=== PATIENT | male | born 1965 | race Caucasian/White ===

== ENCOUNTER → 2019-12-30 11:00 | Outpatient (BNVA) | payer BC, SELFPAY | PROVIDERS: Family Provider Nurse Practitioner Family; PCP Nurse Practitioner Family; Visit Provider Registered Nurse | DX: Z00.00 Encounter for general adult medical examination without abnormal findings (principal); R10.30 Lower abdominal pain, unspecified; Z53.20 Procedure and treatment not carried out because of patient's decision for unspecified reasons; Z12.5 Encounter for screening for malignant neoplasm of prostate | CPT/HCPCS: G0103 ==

== ENCOUNTER → 2021-08-08 08:38 | Outpatient (BNVA) | payer BC, SELFPAY | PROVIDERS: Family Provider Nurse Practitioner Family; PCP Nurse Practitioner Family; Visit Provider Registered Nurse | DX: I10 Essential (primary) hypertension (principal); E78.5 Hyperlipidemia, unspecified; Z12.5 Encounter for screening for malignant neoplasm of prostate; E66.9 Obesity, unspecified; Z71.3 Dietary counseling and surveillance | CPT/HCPCS: 80053; 80061; 85025; G0103 ==

== ENCOUNTER → 2022-02-13 15:47 | Outpatient (BNVA) | payer BC, SELFPAY | PROVIDERS: Family Provider Nurse Practitioner Family; PCP Registered Nurse; Visit Provider Nurse Practitioner Family | DX: Z02.4 Encounter for examination for driving license (principal) | CPT/HCPCS: 81000 ==

== ENCOUNTER → 2022-07-09 09:26 | Outpatient (BNVA) | payer OTHER, SELFPAY | PROVIDERS: Family Provider Nurse Practitioner Family; PCP Registered Nurse; Visit Provider Registered Nurse | DX: I10 Essential (primary) hypertension (principal); M25.50 Pain in unspecified joint; E78.5 Hyperlipidemia, unspecified; E66.9 Obesity, unspecified; R53.83 Other fatigue; Z53.20 Procedure and treatment not carried out because of patient's decision for unspecified reasons; E78.49 Other hyperlipidemia; Z12.5 Encounter for screening for malignant neoplasm of prostate; Z71.3 Dietary counseling and surveillance; M54.31 Sciatica, right side | CPT/HCPCS: 80053; 80061; 84153; 84402; 84403; 85025 ==

== ENCOUNTER → 2023-05-30 16:38 | Outpatient (BNVA) | payer OTHER, SELFPAY | PROVIDERS: Family Provider Nurse Practitioner Family; PCP Family Medicine; Visit Provider Family Medicine | DX: I10 Essential (primary) hypertension (principal); E66.9 Obesity, unspecified; E78.2 Mixed hyperlipidemia; Z76.89 Persons encountering health services in other specified circumstances; Z12.5 Encounter for screening for malignant neoplasm of prostate; Z13.1 Encounter for screening for diabetes mellitus; M54.31 Sciatica, right side; M25.562 Pain in left knee; M25.551 Pain in right hip | CPT/HCPCS: 80053; 80061; 82306; 83036; 84443; 85025; 86803; 87806; G0103 ==

== ENCOUNTER 2023-06-14 13:25 | Outpatient (CLI) | payer OTHER, SELFPAY ==
--- NOTE | 2023-06-14 13:34 | XR_ITS ---
WS: [id number] Left knee, 3 views, 06/14/2023 Clinical Data: M25.562 - Pain in left knee Comparison: None. Findings: There is medial joint compartment narrowing with sclerosis of the adjoining joint surfaces. There is a spur of the medial femoral condyle. The lateral joint space shows mild narrowing with a spur of the lateral femoral condyle. The posterior left patella shows spurring and irregularity. There are calci fications adjacent to the superior and lateral aspects of the left patella. There are no fractures or dislocations. XR/XR knee LT 1-2V [id number] Impression: Moderate osteoarthritis of the left knee. Kellgren-Seymour Classification: grade 3 (moderate): moderate multiple osteoph ytes, definite narrowing of joint space and some sclerosis and possible deformi ty of bone ends
--- NOTE | 2023-06-14 13:34 | XR_ITS ---
WS: [id number] AP standing views of both knees, 06/14/2023 Clinical Data: M25.551 - Pain in right hip Comparison: None. Findings: The AP view of the right knee shows medial joint compartment narrowing with spurring of the medial fe moral condyle. The AP view of the left knee shows severe narrowing of the medial joint compartment with sclerosis of the adjacent joint surfaces. There are calcifications adjacent to the superior and lateral aspects o f the left patella. XR/[place] [id number] Impression: Medial joint compartment narrowing of both knees.
--- NOTE | 2023-06-14 13:34 | XR_ITS ---
WS: [id number] Right hip, AP and frog-leg views, 06/14/2023 Clinical Data: M25.551 - Pain in right hip Comparison: None. Findings: No fractures or dislocations are seen. The right hip shows narrowing, sclerosis and cyst formation on both sides of the joint. There is minimal irregularity of the right femoral head. The right SI joint and pubic symphysis are unremarkable. The soft tissues are not remarkable. The adjacent pelvis is no rmal. XR/XR hip RT 2-3V wo/w pel* [id number] Impression: Severe osteoarthritis of the right hip. Tonnis classification: grade 3: large cysts in femoral head/acetabulum or joint space obliteration/severe narrowing or severe femoral head deformity vs AVN
== END 2023-06-14 13:26 | disposition home or self-care (01) ==
PROVIDERS: PCP Family Medicine; Visit Provider Family Medicine
DX: M25.562 Pain in left knee (principal); M25.762 Osteophyte, left knee; M25.761 Osteophyte, right knee; M16.11 Unilateral primary osteoarthritis, right hip
CPT/HCPCS: 73502; 73560; 73565

== ENCOUNTER → 2023-10-18 07:57 | Outpatient (BNVA) | payer OTHER, SELFPAY | PROVIDERS: PCP Family Medicine; Visit Provider Student in an Organized Health Care Education/Training Program | DX: M16.11 Unilateral primary osteoarthritis, right hip (principal) | CPT/HCPCS: 77002 ==

== ENCOUNTER → 2024-03-24 15:06 | Outpatient (BNVA) | payer OTHER, SELFPAY | PROVIDERS: PCP Family Medicine; Visit Provider Family Medicine | DX: Z12.5 Encounter for screening for malignant neoplasm of prostate (principal); I10 Essential (primary) hypertension; E78.2 Mixed hyperlipidemia | CPT/HCPCS: 80053; 80061; G0103 ==

== ENCOUNTER → 2024-05-26 15:38 | Outpatient (BNVA) | payer OTHER, SELFPAY | PROVIDERS: PCP Family Medicine; Visit Provider Orthopaedic Surgery | DX: M54.31 Sciatica, right side (principal); M54.9 Dorsalgia, unspecified | CPT/HCPCS: 72110 ==

== ENCOUNTER 2024-07-07 06:56 | Outpatient (CLI) | payer OTHER, SELFPAY ==
--- NOTE | 2024-07-07 07:15 | MR_ITS ---
WS: [id number] MRI LUMBAR SPINE NONCONTRAST TECHNIQUE: Sagittal T1, T2 and STIR imaging. Axial T1 and T2 imaging. CLINICAL INFORMATION: back pain COMPARISON: None. FINDINGS: Mild lumbar curve. No acute compression. Disc space narrowing worse at L2-3. Disc bulging worse at L2 L3-L4-L5 and L5-S1. L1-L2: Mild facet arthropathy. Tiny LEFT foraminal protrusion with mild LEFT foraminal narrowing. Mil d facet arthropathy. L2-L3: Mild disc bulging with shallow central protrusion. Slight effacement of the ventral thecal sac . Mild RIGHT greater than LEFT foraminal narrowing. Mild facet arthropathy. L3-L4: Mild disc bulging. Slight narrowing the LEFT subarticular recess. Small LEFT foraminal protrus ion with mild LEFT foraminal narrowing. L4-L5: Shallow central protrusion with a small annular fissure. Slight impingement traversing L5 nerv e roots bilaterally. Mild facet arthropathy. Mild LEFT greater than RIGHT foraminal narrowing. L5-S1: Shallow central disc protrusion. Slight contact of the S1 nerve roots. Mild facet arthropathy. Mild RIGHT greater than LEFT foraminal narrowing. Small central protrusions in the thoracic spine at T6-T8 with mild spinal canal narrowing. Visualized pelvic bony structures: Normal. Paravertebral soft tissues: Normal. MR/MR lumbar spine wo con* [id number] IMPRESSION: 1. Mild lumbar curve. No acute compression. Disc space narrowing worse at L2-3 . 2. Shallow central protrusion L4-5 with a small annular fissure and impingemen t of traversing L5 nerve roots bilaterally. 3. Shallow central protrusion L5-S1 with slight contact of the RIGHT greater t murray LEFT S1 nerve roots. 4. Small LEFT foraminal protrusion L3-4 with mild LEFT foraminal narrowing. 5. Mild RIGHT L5-S1 foraminal narrowing. 6. Central disc protrusions in the thoracic spine at T6-T8 with mild spinal ca nal narrowing.
== END 2024-07-07 06:57 | disposition home or self-care (01) ==
LOC: RAD 06:56
PROVIDERS: PCP Family Medicine; Visit Provider Orthopaedic Surgery
DX: M54.31 Sciatica, right side (principal); M54.9 Dorsalgia, unspecified
CPT/HCPCS: 72148

== ENCOUNTER → 2024-07-14 07:08 | Outpatient (BNVA) | payer OTHER, SELFPAY | PROVIDERS: PCP Family Medicine; Visit Provider Student in an Organized Health Care Education/Training Program | DX: M16.11 Unilateral primary osteoarthritis, right hip (principal); M25.551 Pain in right hip; M25.552 Pain in left hip | CPT/HCPCS: 73522 ==

== ENCOUNTER 2024-08-14 14:01 | Outpatient (CLI) | payer OTHER, SELFPAY ==
--- NOTE | 2024-08-14 15:30 | CT_ITS ---
WS: [id number] CT RIGHT hip, noncontrast HISTORY: hip pain TECHNIQUE: Protocol for [facility] total RIGHT hip replacement has been obtained. This includes axial imagi ng through the RIGHT hip and RIGHT knee DLP: 847.33 mGy COMPARISON: None available. Marked narrowing of the RIGHT hip joint. Bone upon bone with sclerosis and subchondral cystic changes on both sides of the joint. No significant narrowing of the RIGHT knee. Mild arthropathy. CT/CT hip RT [facility] [id number] IMPRESSION: CT imaging provided for [facility] robotic total hip replacement
== END 2024-08-14 14:02 | disposition home or self-care (01) ==
LOC: RAD 14:03
PROVIDERS: PCP Family Medicine; Visit Provider Student in an Organized Health Care Education/Training Program
DX: M16.11 Unilateral primary osteoarthritis, right hip (principal); M12.851 Other specific arthropathies, not elsewhere classified, right hip
CPT/HCPCS: 73700

== ENCOUNTER 2024-08-14 14:06 | Outpatient (CLI) | payer OTHER, SELFPAY ==
[2024-08-14 14:41] LABS: Basophils # 0.1 10^3/uL (0.0-0.1); Basophils % 0.7 %; Eosinophils # 0.4 10^3/uL (0.0-0.8); Eosinophils % 6.3 %; Hematocrit 44.5 % (37-53); Lymphocytes % 28.4 %; Mean Corpuscular HGB Conc 34.6 g/dL (30-55); Mean Corpuscular Hemoglobin 30.5 pg (27-33); Mean Corpuscular Volume 88.1 fl (82-101); Mean Platelet Volume 8.8 fL (7.4-10.4); Monocytes # 0.8 10^3/uL (0.2-0.9); Monocytes % 11.2 %; Neutrophils # 3.65 10^3/uL (1.8-7.7); Neutrophils % 53.3 %; Nucleated Red Blood Cells % 0 %; Platelet Count 225 10^3/cmm (157-399); Red Blood Count 5.05 10^6/uL (3.85-5.65); White Blood Count 6.86 10^3/uL (3.29-11.43)
[2024-08-14 15:00] LABS: Alanine Aminotransferase 17 U/L (0-41); Albumin Level 4.5 g/dL (3.5-5.2); Alkaline Phosphatase 123 U/L (40-130); Blood Urea Nitrogen 17 mg/dL (6-20); Calcium 8.9 mg/dL (8.5-10.5); Carbon Dioxide 23 mmol/L (22-29); Chloride 105 mmol/L (98-107); Globulin 2.7 g/dL (1.3-4.6); Glomerular Filtration Rate 115.4 mL/min (90-130); Glucose 87 mg/dL (65-115); Osmolality Calculated 289 mOsm/kg (285-295); Sodium 139 mmol/L (136-145); Total Bilirubin 0.6 mg/dL (0.15-1.2); Total Protein 7.2 g/dL (6.6-8.7)
[2024-08-14 15:21] LABS: Anion Gap 15.1 (5-19); Aspartate Amino Transferase 27 U/L (0-40); Potassium 4.1 mmol/L (3.5-5.1)
== END 2024-08-14 14:07 | disposition home or self-care (01) ==
LOC: RAD 14:08
PROVIDERS: Absent Provider Student in an Organized Health Care Education/Training Program; PCP Family Medicine; Visit Provider Student in an Organized Health Care Education/Training Program
DX: Z01.818 Encounter for other preprocedural examination (principal)
CPT/HCPCS: 36415; 80053; 85025

== ENCOUNTER 2024-08-19 06:09 | Outpatient (CLI) | payer OTHER, SELFPAY ==
[2024-08-19 06:43] LABS: Add Urine Microscopic? NO
[2024-08-19 06:56] LABS: Add Urine Culture? No; Bilirubin Urine Neg (Negative); Blood Urine Neg (Negative); Charge for UA Resulting for Rev; Glucose Urine UA Norm (Normal); Ketones Urine Negative (Negative); Leukocyte Esterase Urine Negative (Negative); Nitrate Urine Negative (Negative); Protein Urine Neg (Negative); Urine Appearance Clear (CLEAR); Urine Color Yellow (Yellow); Urobilinogen Urine Norm (Negative); pH Urine 5 (5-7)
== END 2024-08-19 06:10 | disposition home or self-care (01) ==
PROVIDERS: PCP Family Medicine; Visit Provider Student in an Organized Health Care Education/Training Program
DX: Z01.818 Encounter for other preprocedural examination (principal)
CPT/HCPCS: 81003

== ENCOUNTER 2024-08-31 10:15 | Observation (INO) | payer OTHER, SELFPAY ==
--- NOTE | 2024-08-30 08:29 | ANES.PREANE2 ---
Pre-Anesthetic Assessment Height/Weight: Height 5 ft 10 in Preop Diagnosis: Arthritis Operation Date: 08/31/24 07:00 Proposed Procedures p Taye Robot Anterior Hip Arthroplasty(Right) - Lamont Wiseman, Was Beta Erica taken within 24 hours: N/A Was Clonidine taken within 24 hours: N/A Social No alcohol and No tobacco Exam alert, oriented x 3, clear to auscultation bilaterally and regular rate & rhythm Airway Submandibular: within normal limits Cervical ROM: within normal limits Mallampati: Class II Dentition: other (Multiple missing teeth) Anesthetic Plan ASA status: 2 Anesthesia: MAC and Regional (specify below) Other: No prior issues with anesthesia NPO since midnight History of hypertension, on amlodipine and telmisartan Labs reviewed and acceptable for surgery No lung problems METs greater than 4 Plan for spinal anesthetic Medications/Allergies Home Medications Medication Instructions Recorded Confirmed Last Taken Type ashwagandha root extract 300 mg 300 mg PO BID 08/08/21 08/31/24 08/17/24 History capsule bilberry fruit extract 80 mg 80 mg PO DAILY 08/08/21 08/31/24 08/17/24 History capsule amlodipine 5 mg tablet 5 mg PO DAILY #90 tabs 03/16/24 08/31/24 08/30/24 Rx cholecalciferol (vitamin D3) 10 10 mcg PO DAILY 07/14/24 08/31/24 08/17/24 History mcg (400 unit) capsule glucosamine sulfate 500 mg tablet 500 mg PO DAILY 07/14/24 08/31/24 08/17/24 History (Glucosamine) telmisartan 40 mg tablet 40 mg PO DAILY 08/27/24 08/31/24 08/30/24 History Allergies Allergy/AdvReac Type Severity Reaction Status Date / Time No Known Allergies Allergy Verified 08/27/24 15:18 [facility] Anesthesia Medical History Colon cancer screening declined Family History Other Heart disease Social History Smoking and tobacco/nicotine status: former use of tobacco/nicotine Second hand smoke exposure: No Alcohol intake: never Substance/Drug Use: never Adopted: No Caregiver/support person: No Lives independently: No Household members: spouse Housing: House Marital status: Number of children: 5 service: No Current occupational status: employed Current occupation: Systems Integration Manager. Current occupational exposures/hazards: Yes Pets and animals: Yes Sexually active: Yes Do you think of yourself as: Straight/Heterosexual Current gender identity: Male Special saloni needs: No Agree to transfusion: No Data Anesthesia 08/31/24 06:12 08/31/24 06:12 Cardiac Studies: No Data to Display
[2024-08-31] VITALS (31 sets, daily range): BP systolic 77–143; BP diastolic 45–85; PULSE 43–85; RESP 12–20; TEMP 36.1–36.6; O2SAT 93–100; BMI 28.3; BMI 31.3
[2024-08-31] MEDS: lactated ringers 500 ML IV (06:28)
[2024-08-31] MEDS: acetaminophen 1,000 MG/100 ML PIGGYBACK 400 MG IV ×3 (06:30→19:46)
[2024-08-31] MEDS: ketorolac 30 mg/mL INJ IVP (06:33)
[2024-08-31 06:37] LABS: Basophils % 0.6 %; Eosinophils # 0.4 10^3/uL (0.0-0.8); Eosinophils % 5.4 %; Hematocrit 45.8 % (37-53); Lymphocytes # 2.1 10^3/uL (0.8-4.8); Lymphocytes % 29.5 %; Mean Corpuscular HGB Conc 35.2 g/dL (30-55); Mean Corpuscular Volume 88.1 fl (82-101); Mean Platelet Volume 8.7 fL (7.4-10.4); Monocytes # 0.7 10^3/uL (0.2-0.9); Monocytes % 10.2 %; Neutrophils # 3.88 10^3/uL (1.8-7.7); Nucleated Red Blood Cells % 0 %; Platelet Count 234 10^3/cmm (157-399); Red Cell Distribution Width 11.9 % (12.1-15.1); White Blood Count 7.18 10^3/uL (3.29-11.43)
[2024-08-31] MEDS: scopolamine 1.5 Patch 1 PATCH TRANSDERMA (06:40)
[2024-08-31 06:48] LABS: Blood Urea Nitrogen 16 mg/dL (6-20); Calcium 9.3 mg/dL (8.5-10.5); Carbon Dioxide 22 mmol/L (22-29); Chloride 104 mmol/L (98-107); Glomerular Filtration Rate 86.4 mL/min (90-130); Glucose 109 mg/dL (65-115); Osmolality Calculated 282 mOsm/kg (285-295); Sodium 135 mmol/L (136-145)
[2024-08-31 06:54] LABS: Anion Gap 12.9 (5-19); Potassium 3.9 mmol/L (3.5-5.1)
--- NOTE | 2024-08-31 06:59 | P.HP_ITS ---
Same Day Surgery H&P Indication for Procedure/HPI DATE OF PROCEDURE: August 31, 2024 CHIEF COMPLAINT/INDICATIONFOR SURGICAL PROCEDURE: Right hip severe degenerative joint disease PREOP DIAGNOSIS: Right hip severe degenerative joint disease PLANNED PROCEDURE: Operation Date: 08/31/24 07:00 Proposed Procedures p Taye Robot Anterior Hip Arthroplasty(Right) - Lamont Wiseman DO Medications/Allergies* Home Medications Medication Instructions Recorded Confirmed Type ashwagandha root extract 300 mg 300 mg PO BID 08/08/21 08/31/24 History capsule bilberry fruit extract 80 mg 80 mg PO DAILY 08/08/21 08/31/24 History capsule cholecalciferol (vitamin D3) 10 10 mcg PO DAILY 07/14/24 08/31/24 History mcg (400 unit) capsule glucosamine sulfate 500 mg tablet 500 mg PO DAILY 07/14/24 08/31/24 History (Glucosamine) telmisartan 40 mg tablet 40 mg PO DAILY 08/27/24 08/31/24 History Allergies/Adverse Reactions Allergy/AdvReac Type Severity Reaction Status Date / Time No Known Allergies Allergy Verified 08/27/24 15:18 Pertinent History/Comorbid Conditions* Medical History (Updated 05/31/24 @ 13:23 by Neville Mariee DO) Colon cancer screening declined Family History (Updated 12/30/19 @ 08:36 by Magi Chavarria LPN) Heart disease Social History Smoking and tobacco/nicotine status: former use of tobacco/nicotine Second hand smoke exposure: No Alcohol intake: never Substance/Drug Use: never Adopted: No Caregiver/support person: No Lives independently: No Household members: spouse Housing: House Marital status: Number of children: 5 service: No Current occupational status: employed Current occupation: Mentally Impaired Teacher. Current occupational exposures/hazards: Yes Pets and animals: Yes Sexually active: Yes Do you think of yourself as: Straight/Heterosexual Current gender identity: Male Special saloni needs: No Agree to transfusion: No Pertinent Exam Findings alert, oriented x 3, operative site marked and procedure specific exam findings Please refer to detailed orthopedic examination on 07/14/2024: Right hip exam Mild tenderness to palpation over lateral trochanteric bursa Tenderness to palpation over the right groin anterior Significantly limited and decreased range of motion of the right hip with significant pain of the groin with hip flexion and internal rotation less than 5 degrees of internal rotation is noted Gross motor and sensory intact of the right lower extremity. Tenderness along the lumbar spine and gluteal region with mild radicular symptoms Recommendations Surgery/Procedure today Other Plans: Plan to proceed to the OR today for right total hip arthroplasty?Taye robotic assisted through an anterior approach review of CT scan there is no evidence of herniations in the inguinal region or commented by radiologist. At this point in time I feel he be amendable to a anterior approach. He is clear the preoperative clearance process no change in his health since last visit this point time elected proceed with surgical intervention he understands the ins and outs procedure risk benefits complication alternatives surgery and through shared decision make elects proceed with surgical intervention. All questions answered at this time. Coding Level of Care Code Acute Code for John Cohn
[2024-08-31] MEDS: sodium chloride 0.9% 1,000 ML 30 ML IV (07:01)
[2024-08-31] MEDS: ceFAZolin 2,000 MG in sodium chloride 0.9% (plus) 50 ML 100 MG IV ×3 (07:03→22:53)
[2024-08-31] MEDS: tranexamic acid 1,000 mg/10mL SDV 1000 MG IV (07:26)
[2024-08-31] MEDS: vancomycin 1,000 MG SDV 1000 MG XX (07:56)
[2024-08-31] MEDS: lidocaine-epi 1% 20 mL INJ INJECTION (07:56)
--- NOTE | 2024-08-31 10:40 | P.BOP_ITS ---
Date of Procedure: 08/31/2024 Surgeon: Lamont Wiseman DO [place] Hand(s): Sla Wiseman PA-C Procedure(s) performed: Right total hip arthroplasty?Taye robotic assisted anterior approach Findings of the procedure(s): Patient was found to have severe right hip degenerative joint disease underwent procedure as planned without issues or complications taken to PACU stable condition Estimated blood loss: 200 mL Specimen(s) removed: Femoral head removed as well as acetabular reamings Post-operative diagnosis: Right hip severe degenerative joint disease
--- NOTE | 2024-08-31 10:41 | PM.OP ---
Operative Report Date of procedure: August 31, 2024 Surgeon: Lamont Wiseman DO Explosives Detonator: Sal Wiseman PA-C: PA was necessary for assistance in this case with leg positioning, reductions, retraction and protection of neurovascular structures as well as assistance in implantation wound closure and dressing application. Procedure: Preoperative diagnosis: Right hip severe degenerative joint disease post-op diagnosis: Same Procedure done: Right total hip arthroplasty?Taye robotic assisted?anterior approach Implants: [place] Trident acetabular shell size 56 mm Mark acetabular screw 25 mm [place] acetabular screw 20 mm [place] insignia standard offset degree size 6? femur stem Trident 0 degree polyethylene 36 degree inner diameter 36 mm femoral head ceramic +5 mm(wasted a +0 mm) Surgeon: Lamont Wiseman DO Anesthesia: Other (Spinal) Estimated blood loss: 200 mL IV fluids: 1200 mL Complications: None Findings: See operative report narrative Condition: stable Disposition: floor Brief History: Patient is a 58-year-old male presented to my outpatient office setting findings consistent with [id number] arthritis advanced degenerative joint disease of the right hip.? We talked about treatment options as far as nonoperative and operative intervention. Pt has failed conservative treatment.? Patient's right hip degenerative joint disease has had significantv pain and decreased range of motion.? we talked about treatment options at this point time pt understands the risk benefits complication alternatives surgical nonsurgical treatment options.? Patient understands the risk of surgery and agrees to proceed.? Patient has underwent a preoperative evaluation. Pt cleared for surical intervention. Pt understood and was agreeable to proceed with a right total hip arthroplasty consent was reviewed and signed with patient.?? All questions answered.? Patient will be admitted postoperatively. Procedure: Patient was seen evaluated in the preoperative holding area.? Consent was reviewed and signed with patient.? Correct operative extremity was then marked. ? All questions were answered at this time.? Once cleared by anesthesia used to brought back to the operative suite he then underwent anesthesia per the anesthesia department of a spinal anesthetic. The patient was administered tranexamic acid and preop antibiotics, and placed in the supine position. All bony prominences were properly padded, securely fixed to the table, and administered?general?anesthetic. The patient was subsequently transferred from the hospital bed to the [place] table. Bilateral lower extremities were placed in the traction boots. The pelvis was well approximated against the perineal post.? Final timeout performed.? Patient received appropriate preoperative antibiotics. Both hips were then prepped and draped in a normal orthopedic fashion.? Started with a small incision 2 fingerbreadths above the ASIS on the left iliac wing to place? pelvic arrays.? Small incision was made directly down to bone.? 3 pelvic pins were placed with excellent fixation.? The robotic array was secured to the nonoperative iliac wing using sterile technique. The extremity was then definitively draped in standard, sterile fashion.? The array was found to be visible by the robot. ?A standard??anterior supine approach was performed to the?operative hip joint. The skin was incised down to the tensor fascia scotty muscle and fascia. Fascia was split longitudinally in line with its fibers. The tensor fascia scotty muscle was retracted laterally. The appropriate retractors were placed superiorly. Lateral circumflex vessels were identified and appropriately ligated. The hip capsule was then identified.? Appropriate retractors were placed superiorly and inferiorly along the capsule directly onto bone.??That was split longitudinally up to the acetabular rim in line with the femoral neck. The femoral capsule was found to be significantly hypertrophic, thickened, and significantly fibrotic. The capsule was then elevated both superiorly and inferiorly down to the lesser trochanter as well as up towards the greater trochanter.? Tag stitches were applied with 0 Ethibond into the capsule.? Femoral check point was?then inserted and confirmed on the lateral trochanter proximal femur.? .? A distal marker?of a sterile EKG lead was placed into the distal femur for measurement of leg lengths.? Preoperative leg lengths were registered and confirmed at this point. Next the appropriate-sized neck cut was then performed after being measured with robotic assistance. Femoral head was removed atraumatically this was found to have significant degenerative changes and deformity with significant osteophyte formation.? Femoral head was found to be severely degenerated and flattening with, eburnated bone. Acetabulum was also inspected and was found to have peripheral osteophytes as well as no evidence of cartilage consistent with [id number] arthritis.? Appropriate retractors were then placed in the?anterior and posterior wall.? The remaining labrum was then excised from the periphery of the acetabular rim. Pulvinar was excised.? At this point registration for the Taye was performed on the acetabular side and confirmed. Once confirmed, any osteophytes able to be were removed. We planned 40 degrees of lateral opening and 20 degrees of anteversion. At this point, we reamed and medialized to the inner wall of the acetabulum with a size?56?reamer for line to line fit.?The acetabulum was found to have good bleeding bone throughout.?? Reamer removed excellent bleeding bone circumferentially with sufficient?anterior and posterior wall. ?The definitive acetabular cup 56 mm was inserted and impacted under?Taye guidance with the appropriate amount of anteversion and lateral opening. It was then secured with 2x 6.5 mm cancellous screws in appropriate safe zone position.? I subsquently drilled measured and place appropriate length acetabular screws which measured 25 mm and 20 mm.? These had excellent fixation final x-rays were taken of the acetabular work and showed a seated and well fixed acetabular cup with appropriate position acetabular screws.? ?Next a 36-mm X3 neutral liner was impacted into the?acetabular shell and secured. Hip was then irrigated with copious amounts of irrigation. At this point, the remaining femoral releases were then performed allowing the adequate mobilization of the?right?femur.? Traction was confirmed to being off to the right lower extremity and the femur was then externally rotated, extended, and adducted giving adequate exposure of the proximal femur in the surgical wound. Box cut was then used to enter the intramedullary canal of the?femur. Canal finder was placed down the canal of the?operative femur. Appropriate-sized broaches from a size 0 up to a size 6 were impacted down the operative femoral canal with the appropriate amount of anteversion.? A multiple trials were attempted and it was determined that his appropriate offset was a standard offset to match his other side and had appropriate tensioning the high offset appeared to be too tight and had significant increase in his offset. Given the size 6 stem had excellent fixation we elected to place this. And it was found?that?this stem was found to be most appropriate for a soft tissue tensioning offset, stability and the leg lengths?that was confirmed with Taye. ?Stability was then assessed and excellent stability with patient external rotation of greater?than 90 degrees and traction with no evidence of hip instability.? Appropriate tension noted of the soft tissues. At this point, the hip was relocated.?Taye guidance was again used to confirm appropriate leg lengths.? I utilized C arm to evaluate for leg lengths and this appeared to be comparative to the contralateral extremity as a result was the appropriate size for patient's stability and excellent soft tissue tensioning as well as this was mapped with her preoperative planning.? Operative hip was then re-dislocated using a bone hook. All trials were then removed from the?operative femur. Adequate exposure was then once again obtained. The trials were removed. The definitive [place] insignia standard offset stem size 6 was impacted down the?femoral canal with the appropriate amount of anteversion. This advanced resting the collar directly onto the calcar. At this point in time I the appropriate sized head 36 mm ceramic +0 mm was impacted onto the trunnion, and the?operative?hip was then relocated with traction and internal rotation. Final measurements did show this was slightly shorter and slight loss of some offset and then had increase shuck as result I remove this ceramic head and then we trialed up to a +5mm. It was a +5 that had matching preoperative plan on leg lengths as well as offset as well and had appropriate soft tissue tensioning as well as excellent stability with rotating the foot at 90 degrees with gentle traction and stability was maintained. At this point the trial +5 mm was then removed and then impacted the final +5 mm ceramic head onto the trunnion after it was dried this had excellent fixation. Final measurements were obtained on Taye confirming leg lengths and offset.? Once again hip stability was assessed and found to have excellent stability and appropriate soft tissue tensioning.? Final x-rays were then subsequently taken of AP as well as hip externally rotated showing appropriate implant positioning no evidence of periprosthetic fracture and appropriate leg lengths on x-ray. Hip was irrigated with copious amounts of irrigation.? Vancomycin powder was placed within the wound bed for added infection prophylaxis.? The superior and inferior leaflets of the capsule were then closed with Ethibond suture.? Vicryl tag stitches were removed.? The superficial layer of the tensor fascia scotty fascia was closed using 0 stratafix suture in a running fashion.? Subcutaneous tissues were closed with running 3-0 Stratafix, skin was closed with 4-0 monocryl.?Surgical Prineo glue and steri strips were?applied and covered with a ray incisional VAC dressing to the operative side.?The incision on the non-operative side for the robotic array was irrigated and closed with layered fashion of 0 Vicryl, 2-0 Vicryl and running Monocryl suture and surgical glue and covered with Silverlon. ?The patient was subsequently awoken per Anesthesia and transferred to PACU in satisfactory condition. ?Leg lengths and rotational profile were found to be appropriate. ? DISPOSITION: The patient will be admitted to the hospital for initiation of DVT prophylaxis, physical therapy, pain control. The patient is to weight bear as tolerated.?Anterior hip precautions, postoperative antibiotics,?postoperative TXA and aspirin 325 twice daily ?for DVT prophylaxis.? Patient will receive appropriate discharge instructions as well as pain medication postoperatively and will follow up in my office in 2 weeks.? Patient with work with PT/OT.? Internal medicine will be consulted for medical management
--- NOTE | 2024-08-31 10:49 | XR_ITS ---
WS: [id number] Exam: XR hip RT 2-3V wo/w pel* [id number] Date/Time of Exam: 08/31/2024 10:51 AM Reason For Exam: post op TRISTAN Comparison 07/14/2024. A RIGHT total hip arthroplasty is noted. Postoperative changes in the adjacent soft tissues. Position alignment appears satisfactory. XR/XR hip RT 2-3V wo/w pel* [id number] IMPRESSION: 1. RIGHT total hip arthroplasty in excellent position.
--- NOTE | 2024-08-31 10:52 | PM.PACU ---
PACU note Narrative: Patient is a 58-year-old male just underwent a right total hip arthroplasty. Pt transferred to PACU in stable condition. Dressing is dry. pt is awake and alert. pt can wiggle toes and plantarflex and dorsiflex foot. pt able to perform straight leg raise, Femoral nerve intact. Distal pulses are palpable toes are warm and well-perfused. Cap refill is normal and under 2 seconds. Unable to assess sensation to foot due to spinal. Pain is controlled. Exam: awake Disposition: admitted
--- NOTE | 2024-08-31 11:07 | P.CONIM_ITS ---
Providers/Reason For Consult 2 Consulting Physician/Specialty*: Xander Roe MD, hospitalist Reason for Consult*: Medical management Requesting Physician: Dr. Wiseman Attending Physician: Lamont Wiesman DO Primary Care Provider: Neville Mariee DO History of Present Illness History of Present Illness William Yates is a 58 year old male who underwent right total hip arthroplasty today electively for degenerative joint disease. Surgery was relatively uncomplicated. He had spinal anesthesia, EBL was 200, he received 1200 cc of fluids during the surgery. Patient himself is still sedated. He is unable to participate in the consultation at this time. Preoperatively, there is only history of hypertension past tobacco use recorded.. Medications/Allergies Home Medications Medication Instructions Recorded Confirmed Last Taken Type ashwagandha root extract 300 mg 300 mg PO BID 08/08/21 08/31/24 08/17/24 History capsule bilberry fruit extract 80 mg 80 mg PO DAILY 08/08/21 08/31/24 08/17/24 History capsule amlodipine 5 mg tablet 5 mg PO DAILY #90 tabs 03/16/24 08/31/24 08/30/24 Rx cholecalciferol (vitamin D3) 10 10 mcg PO DAILY 07/14/24 08/31/24 08/17/24 History mcg (400 unit) capsule glucosamine sulfate 500 mg tablet 500 mg PO DAILY 07/14/24 08/31/24 08/17/24 History (Glucosamine) telmisartan 40 mg tablet 40 mg PO DAILY 08/27/24 08/31/24 08/30/24 History Allergies Allergy/AdvReac Type Severity Reaction Status Date / Time No Known Allergies Allergy Verified 08/27/24 15:18 Current Medications Generic Name Dose Route Start Last Admin Trade Name Freq PRN Reason Stop Dose Admin Sodium Chloride 1,000 mls @ 30 mls/hr 08/31/24 06:00 08/31/24 10:01 Sodium Chloride 0.9% IV 09/01/24 05:59 Infused .Q24H DARRYL Infusion PFSH Acute 2 PFSH: Medical History (Updated 08/31/24 @ 11:10 by Xander Roe MD) Hyperlipidemia due to dietary fat intake Essential hypertension Colon cancer screening declined Family History Other Heart disease Social History Smoking and tobacco/nicotine status: former use of tobacco/nicotine Second hand smoke exposure: No Alcohol intake: never Substance/Drug Use: never Adopted: No Caregiver/support person: No Lives independently: No Household members: spouse Housing: House Marital status: Number of children: 5 service: No Current occupational status: employed Current occupation: Kindergarten Paraprofessional. Current occupational exposures/hazards: Yes Pets and animals: Yes Sexually active: Yes Do you think of yourself as: Straight/Heterosexual Current gender identity: Male Special saloni needs: No Agree to transfusion: No Vitals/I&O/Wt Last Vital Signs Temp 97.9 F 08/31/24 06:18 Pulse 71 08/31/24 06:18 Resp 16 08/31/24 06:18 BP 128/85 08/31/24 06:18 Pulse Ox 96 08/31/24 06:18 O2 Del Method Room Air 08/31/24 06:18 O2 Flow Rate 6 08/31/24 10:50 08/30/24 08/31/24 08/31/24 22:59 06:59 14:59 Intake Total 100 / 100 1750 / 1750 Output Total 600 / 600 Balance 100 / 100 1150 / 1150 Weight last 48 hrs Weight 89.358 kg Physical Exam 2 Narrative: General is a sedated white male, no distress HEENT: Pupils equally round. Oropharynx clear Neck is supple Cardiovascular regular rate and rhythm, no murmur Lungs clear Abdomen soft nontender demonstrates William Extremities no cyanosis clubbing or edema, right hip dressing clean and dry Skin no rash Neuro unable to participate in exam Urinary Catheter Management: William: Cath Placed During This Visit: yes Urinary Catheter Date of Insertion: 08/31/24 Urinary Catheter Time of Insertion: 07:13 Data 08/31/24 06:12 08/31/24 06:12 A&P Assessment and plan (1) Primary osteoarthritis of right hip: Patient is directly postoperative a right total hip arthroplasty Orthopedics is planning on aspirin for DVT prophylaxis as an outpatient PT evaluation when able No apparent complications. (2) Essential hypertension: Currently somewhat hypotensive. This appears to be improving with time following anesthesia. Anesthesia did address hypotension prior to coming to recovery unit with some Orville-Synephrine. Hold antihypertensives Continue fluids Reevaluate for reinitiation of his antihypertensive tomorrow. May choose to hold ARB longer if needed. Plan Past history of tobacco use Consult Attestations 2 Medical Necessity Statement: As per primary Diagnoses Primary osteoarthritis of right hip M16.11 Essential hypertension I10 Time Spent (min) 35
--- NOTE | 2024-08-31 12:12 | ANE.PACU2 ---
Inpatient post-anesthesia follow up: Airway intact: Yes Vital signs: Temperature 97.7 F Pulse Rate 50 Respiratory Rate 17 Blood Pressure 99/66 Pulse Oximetry 96 Oxygen Delivery Me thod Room Air Oxygen Flow Rate 6 Fraction of Inspir ed Oxygen Hydration adequate: Yes Nausea and vomiting: No Pain level: 1 Mental status: Baseline
--- NOTE | 2024-08-31 12:24 | SUR.PHASEI ---
1055 Bilat foot pumps on pump and working
[2024-08-31] MEDS: lactated ringers 1,000 ML 100 ML IV ×2 (12:51→22:59)
[2024-08-31] MEDS: chlorhexidine gluconate 0.12% Btl 473 mL 30 ML MUCOUS MEM ×3 (12:58→19:47)
[2024-08-31] MEDS: ketorolac 30 mg/mL INJ 15 MG IVP ×2 (14:39→22:53)
[2024-08-31] MEDS: HYDROmorphone 1 mg/mL INJ 1 mL 0.5 MG IVP ×2 (15:39→19:50)
[2024-08-31] MEDS: tranexamic acid 1,000 MG/100 ML PREMIX 600 MG IV (16:31)
[2024-08-31] MEDS: oxyCODONE 5 mg IR Tab/Cap PO ×2 (16:53→23:04)
[2024-08-31] MEDS: mupirocin oint 22 gm 1 APPLIC NASAL (17:31)
[2024-08-31] MEDS: iron polysaccharide complex 150 mg Capsule PO (17:32)
[2024-08-31] MEDS: calcium carb-vit d 600mg/400unit 1 Tablet 1 EACH PO (17:32)
[2024-08-31] MEDS: sennosides-docusate Tablet 2 TAB PO (17:32)
[2024-09-01] VITALS (14 sets, daily range): BP systolic 126–142; BP diastolic 71–80; PULSE 68–87; RESP 17–18; TEMP 36.8–38.7; O2SAT 92–96
[2024-09-01] MEDS: HYDROmorphone 1 mg/mL INJ 1 mL 0.5 MG IVP ×2 (02:17→10:40)
[2024-09-01] MEDS: acetaminophen 1,000 MG/100 ML PIGGYBACK 400 MG IV (04:34)
[2024-09-01 05:36] LABS: Basophils % 0.1 %; Eosinophils % 0.2 %; Hematocrit 34.4 % (37-53); Lymphocytes # 1.1 10^3/uL (0.8-4.8); Mean Corpuscular Hemoglobin 30.6 pg (27-33); Mean Corpuscular Volume 90.1 fl (82-101); Mean Platelet Volume 8.9 fL (7.4-10.4); Monocytes % 11.3 %; Neutrophils # 6.97 10^3/uL (1.8-7.7); Nucleated Red Blood Cells % 0 %; Platelet Count 167 10^3/cmm (157-399); Red Blood Count 3.82 10^6/uL (3.85-5.65); White Blood Count 9.18 10^3/uL (3.29-11.43)
[2024-09-01 06:11] LABS: Anion Gap 13.1 (5-19); Blood Urea Nitrogen 9 mg/dL (6-20); Calcium 8.2 mg/dL (8.5-10.5); Carbon Dioxide 24 mmol/L (22-29); Chloride 105 mmol/L (98-107); Creatinine Clr Calc Pharmacy 104.3275; Glomerular Filtration Rate 86.4 mL/min (90-130); Glucose 112 mg/dL (65-115); Osmolality Calculated 285 mOsm/kg (285-295); Potassium 4.1 mmol/L (3.5-5.1); Sodium 138 mmol/L (136-145)
[2024-09-01] MEDS: ceFAZolin 2,000 MG in sodium chloride 0.9% (plus) 50 ML 100 MG IV (06:14)
[2024-09-01] MEDS: multivitamin therapeutic Tablet 1 TAB PO (07:37)
[2024-09-01] MEDS: iron polysaccharide complex 150 mg Capsule PO (07:38)
[2024-09-01] MEDS: oxyCODONE 5 mg IR Tab/Cap PO ×2 (07:38→12:44)
[2024-09-01] MEDS: aspirin 325 mg EC Tablet PO (07:38)
[2024-09-01] MEDS: calcium carb-vit d 600mg/400unit 1 Tablet 1 EACH PO (07:38)
[2024-09-01] MEDS: sennosides-docusate Tablet 2 TAB PO (07:38)
[2024-09-01] MEDS: mupirocin oint 22 gm 1 APPLIC NASAL (07:44)
[2024-09-01] MEDS: chlorhexidine gluconate 0.12% Btl 473 mL 30 ML MUCOUS MEM ×2 (07:44→12:46)
[2024-09-01] MEDS: amlodipine 5 mg Tablet PO (09:20)
--- NOTE | 2024-09-01 09:26 | PC.CHAP ---
Pastoral Care Encounter/Spiritual Assessment Type of Contact [] Declined weld technician visit [] Patient/Family/Request visit [] Outpatient visit [] Follow-up visit [] Physician referral [] Code/Alert [x] Routine visit [] Staff referral [] Actively dying [] Patient sleeping [x] Family support [] [] Out of room [] Palliative care [] [] Receiving care in room [] Pre-surgical visit [] Trauma [] Long length of stay [] ICU visit [] Other: Relational/Emotional Strength [x] Patient feels connected with others/family/visitors/staff [] Distress [] Loneliness/isolation [] Abandonment Spirituality of Patient [x] Person of [place] [] Attends Sabianist of their [place] [x] Believes in Prayer [] Reads Bible or Restoration materials [] There are Spiritual issues to be addressed Spray Painting Machine Operator Interventions [x] Prayer [x] Active listening [] Non-anxious presence [x] Spiritual/emotional support [] Crisis/trauma care [] Spiritual counseling [] Bereavement support [] Provided bereavement packet [] Provided Bible/devotional materials [] Provided toy/stuffed animal, coloring book to patient or family member [] Provided Communion [] Anointing/[place] [] Salvation [x] Completed spiritual assessment [] Other: Impact on Illness or Injury [] Angry [] Fearful [] Anxious [] Often cries [] Exhaustion [] Unable to work [] Unable to attend religious [] Unable to walk/stand [] Unable to read [] Unable to drive [] Unable to eat/drink [] Unable to sleep [] Unable to be with family [] Patient intubated [] Other: Summary Time spent with patient 5 min
--- NOTE | 2024-09-01 09:31 | P.PN_ITS ---
Documented by User: TOBY Lugo STDVITOR 09/01/24 09:57 Subjective 2 Subjective: Patient is post-op day #1 after R.. total hip arthropathy. Patient's BP has continued to improve and remains stable. Patient endorses pain along the right hip and down to his calf muscle, which he perceives as siatic pain. Patient's oxy was increase to 5-10 due to continuous pain during the night. Patient's William was removed today and will be seeing PT. Vitals/I&O/Wt Last Vital Signs Temp 98.4 F 09/01/24 07:16 Pulse 80 09/01/24 07:16 Resp 17 09/01/24 07:38 BP 126/80 09/01/24 07:16 Pulse Ox 92 09/01/24 07:16 O2 Del Method Room Air 09/01/24 07:16 O2 Flow Rate 6 08/31/24 11:00 08/31/24 09/01/24 09/01/24 22:59 06:59 14:59 Intake Total 1970 / 4120 700 / 4820 1190 / 1190 Output Total 850 / 1450 350 / 350 Balance 1120 / 2670 700 / 3370 840 / 840 Weight last 48 hrs Weight 218 lb 9.6 oz Weight 218 lb 6.4 oz Weight 197 lb Physical Exam 2 Neck/C-Spine: OTHER: Supple without thyromegaly Resp: OTHER: Normal breath sounds, clear to auscultation, normal chest wall expansion Cardio: OTHER: Normal rate and rhythm, without murmurs, gallops, or rubs GI: OTHER: Soft, nondistended, nontender with bowel sounds : OTHER: William removed Extremity: NARRATIVE EXTREMITY EXAM: No edema or cyanosis. Patient able to move both feet without evidence of foot drop Urinary Catheter Management: William: Cath Placed During This Visit: yes Reason for Continuing Indwelling Catheter: Perioperative Use in Selected Surgeries Urinary Catheter Date of Insertion: 08/31/24 Urinary Catheter Time of Insertion: 07:13 Data 09/01/24 05:06 09/01/24 05:06 A&P Assessment and plan (1) S/P total right hip arthroplasty: Patient post-op day #1 of right total hip arthroplasty PT is seeing the patient, did well yesterday Patient endorse pain, oxycodone IR was increased to 5-10mg Continue pain management using hydrocodone, toradol, tramadol as per ortho instructions Patient able to tolerate PO, stop fluids and resume regular diet RBCs is low at 3.82 with Hemoglobin at 11.7, consistent with post-op blood loss, will continue to monitor (2) Essential hypertension: Patient had hypotension following anesthesia, anesthesia addressed in recovery unit with Orville-Synephrine. Patient BP has increased and has been stable in the 140s-120s/80-70s, start amlodipine at 5 mg PO daily. Stop fluids, continue to hold ARB Plan Full code Asprin for DVT PPX as outpatient, as per ortho Coding Level of Care Code 88864 Diagnoses S/P total right hip arthroplasty Z96.641 Essential hypertension I10 Time Spent (min) 21 Documented by User: Xander Roe MD 09/01/24 09:57 Physical Exam 2 Extremity: NARRATIVE EXTREMITY EXAM: No edema or cyanosis. Patient able to move both feet without evidence of foot drop. Dressing clean and dry. No significant fullness in the right thigh. Urinary Catheter Management: William: Cath Placed During This Visit: yes Data 09/01/24 05:06 09/01/24 05:06 A&P Assessment and plan (1) S/P total right hip arthroplasty: Patient post-op day #1 of right total hip arthroplasty PT is seeing the patient, did well yesterday Patient endorse pain, oxycodone IR was increased to 5-10mg Continue pain management using hydrocodone, toradol, tramadol as per ortho instructions Patient able to tolerate PO, stop fluids and resume regular diet RBCs is low at 3.82 with Hemoglobin at 11.7, consistent with post-op blood loss, will continue to monitor Aspirin is being used for DVT prophylaxis (2) Essential hypertension: Plan Full code Asprin for DVT PPX as outpatient, as per ortho Thank you for consultation Attestations 2 Medical Necessity Statement*: As per primary Diagnoses S/P total right hip arthroplasty Z96.641 Essential hypertension I10 Time Spent (min) 21
--- NOTE | 2024-09-01 11:57 | PC.NURSE ---
Patient's spouse presented to the nurses' station stating that patient needed another blanket as he is freezing. Patient is POD1 of right TRISTAN, so I obtained his temperature via axillary as he was actively eating upon entering the room, with the result of 101.6F. I inquired if patient had been utilizing his IS and he stated that he had once this morning. I went over with him appropriate use and asked him to demonstrate education, which he did appropriately. I provided education to him and his spouse on performing 10 deep breaths using IS 10 times/hour while he's awake. They verbalize understanding. Upon auscultation, patient's lungs had light crackles in bilateral bases prior to IS use that were improved after IS use. I spoke with Dr. Wiseman and informed him of the above information. He asked that I f/u with Dr. Roe as he was on this patient's case as well. I spoke with Dr. Roe and he agreed that this was probably r/t post-op atelectasis. He stated that monitoring the patient is sufficient for now. No new orders received. I reviewed this information with patient, his spouse, Umu, and patient's primary nurse, Lucien Hawk RN.
--- NOTE | 2024-09-01 13:07 | P.DS_ITS ---
Discharge Providers Date of Admission: 08/31/24 10:15 Date of Discharge: September 01, 2024 Attending Provider at Admission: Lamont Wiseman DO Attending Provider at Discharge: Lamont Wiseman DO Consults: Dr. Roe?hospitalist Primary Care Provider: Neville Mariee DO Diagnoses at Discharge Discharge Diagnosis (1) S/P total right hip arthroplasty: Status: Acute (2) Essential hypertension: Status: Acute Reason for Visit Reason for Visit: M16.11 Brief History: Status post right total hip arthroplasty anterior approach Taye robotic assisted Hospital Course Hospital Course Patient was brought to the hospital through the preoperative holding area with plan for right total hip arthroplasty for right hip dengerative joint disease. Once cleared by anesthesia for surgery subsequently was taken back to the operative suite underwent anesthesia per the anesthesia department and then underwent right total hip arthroplasty with Taye robotic assistance anterior approach without any complications. Patient was then subsequently taken back to PACU in stable condition recovering well. Once recovered, patient was then subsequently admitted to the floor postoperatively. Internal medicine was consulted for medical management assistance. Patient weightbearing as tolerated to the right lower extremity, anterior hip precautions. PT/OT. Pain control. DVT prophylaxis. Postoperative antibiotics and TXA. dressing was change as needed. Internal medicine was on board and appreciate their medical management and assistance. Patient did have a increase in temperature that immediately responded to incentive spirometry and recheck in 10 minutes was back down to normal. This was staffed with hospitalist and was informed by nursing staff and no signs or concerns of infection at this time stable for discharge. Pt was determined on postoperative day 1 the patient was stable for discharge from orthopedic as well as internal medicine standpoint. Patient's labs were monitored daily. Patient will receive appropriate pain medication as well as DVT prophylaxis postoperatively. Appropriate discharge instructions as well. Patient was then discharged in stable condition. Patient will discharge home. Pt will follow-up with Orthopedics in the office in 2 weeks. Patient unde rstands and agrees with current plan. All questions answered. Understands there is any issues or concerns and contact the office. Physical Exam Narrative: Right anterior approach hip incision dressing clean dry and intact patient's left iliac wing Taye incision is clean dry and intact. Normal postoperative swelling and soreness to the right thigh. Patient is able to wiggle toes plantarflex and dorsiflex ankle sensations intact to light touch distally. Patient is able to perform a straight leg raise,distal pulses palpable Urinary Catheter Management: William: Cath Placed During This Visit: yes Reason for Continuing Indwelling Catheter: Perioperative Use in Selected Surgeries Urinary Catheter Date of Insertion: 08/31/24 Urinary Catheter Time of Insertion: 07:13 Discharge Data Studies Completed and Pending Completed Studies During Hospitalization Category Date Time Status XR hip RT 2-3V wo/w pel* [id number] Routine Exams 08/31/24 10:49 Completed Pending at discharge Category Date Time Status Basic Metabolic Panel AM LABS Lab 09/02/24 04:00 Ordered Basic Metabolic Panel AM LABS Lab 09/03/24 04:00 Ordered Complete Blood Count w/Auto AM LABS Lab 09/02/24 04:00 Ordered Complete Blood Count w/Auto AM LABS Lab 09/03/24 04:00 Ordered Radiology Impressions Hip/Pelvis X-Ray 08/31/24 10:49 IMPRESSION: 1. RIGHT total hip arthroplasty in excellent position. Laboratory Results WBC 9.18 10^3/uL (3.29-11.43) 09/01/24 05:06 RBC 3.82 10^6/uL (3.85-5.65) L 09/01/24 05:06 Hgb 11.70 g/dL (11.27-16.99) 09/01/24 05:06 Hct 34.4 % (37-53) L 09/01/24 05:06 MCV 90.1 fl (82-101) 09/01/24 05:06 MCH 30.6 pg (27-33) 09/01/24 05:06 MCHC 34.0 g/dL (30-55) 09/01/24 05:06 RDW 12.0 % (12.1-15.1) L 09/01/24 05:06 Plt Count 167 10^3/cmm (157-399) 09/01/24 05:06 MPV 8.9 fL (7.4-10.4) 09/01/24 05:06 Neut % (Auto) 76.0 % 09/01/24 05:06 Lymph % (Auto) 12.0 % 09/01/24 05:06 [place] % (Auto) 11.3 % 09/01/24 05:06 Eos % (Auto) 0.2 % 09/01/24 05:06 Baso % (Auto) 0.1 % 09/01/24 05:06 Neut # (Auto) 6.97 10^3/uL (1.8-7.7) 09/01/24 05:06 Lymph # (Auto) 1.1 10^3/uL (0.8-4.8) 09/01/24 05:06 [place] # (Auto) 1.0 10^3/uL (0.2-0.9) H 09/01/24 05:06 Eos # (Auto) 0.0 10^3/uL (0.0-0.8) 09/01/24 05:06 Baso # (Auto) 0.0 10^3/uL (0.0-0.1) 09/01/24 05:06 Nucleated RBC % (auto) 0 % 09/01/24 05:06 Nucleated RBCs # 0.0 /100WBC 09/01/24 05:06 Sodium 138 mmol/L (136-145) 09/01/24 05:06 Potassium 4.1 mmol/L (3.5-5.1) 09/01/24 05:06 Chloride 105 mmol/L (98-107) 09/01/24 05:06 Carbon Dioxide 24 mmol/L (22-29) 09/01/24 05:06 Anion Gap 13.1 (5-19) 09/01/24 05:06 BUN 9 mg/dL (6-20) 09/01/24 05:06 Creatinine 0.9 mg/dL (0.7-1.2) 09/01/24 05:06 GFR Calculation 86.4 mL/min (90-130) L 09/01/24 05:06 Glucose 112 mg/dL (65-115) 09/01/24 05:06 Calculated Osmolality 285 mOsm/kg (285-295) 09/01/24 05:06 Calcium 8.2 mg/dL (8.5-10.5) L 09/01/24 05:06 Blood Type O Positive 08/31/24 06:12 Rho(D) Type Rh positive 08/31/24 06:12 Antibody Screen Negative 08/31/24 06:12 Vitals Last Vital Signs Temp 99.4 F 09/01/24 12:37 Pulse 82 09/01/24 11:45 Resp 18 09/01/24 12:44 BP 139/71 09/01/24 11:45 Pulse Ox 94 09/01/24 11:45 O2 Del Method Room Air 09/01/24 11:45 O2 Flow Rate 6 08/31/24 11:00 Discharge Plan Discharge Patient Disposition: Home Health Service Condition: Stable Prescriptions: New aspirin 325 mg tablet 325 mg PO BID 35 Days Qty: 70 0RF calcium carbonate-vitamin D3 [Calcium 600 + D(3)] 600 mg-10 mcg (400 unit) tablet 1 tab PO DAILY 30 Days Qty: 30 0RF Continued bilberry fruit extract 80 mg capsule 80 mg PO DAILY ashwagandha root extract 300 mg capsule 300 mg PO BID glucosamine sulfate [Glucosamine] 500 mg tablet 500 mg PO DAILY Rx Instructions: administer with a meal cholecalciferol (vitamin D3) 10 mcg (400 unit) capsule 10 mcg PO DAILY No Action amlodipine 5 mg tablet See Rx Instructions .ROUTE .COMPLEX Qty: 90 3RF Dose Instruction: TAKE 1 TABLET BY MOUTH EVERY DAY Rx Instructions: TAKE 1 TABLET BY MOUTH EVERY DAY telmisartan 40 mg tablet 40 mg PO DAILY Qty: 90 3RF Rx Instructions: TAKE 1 TABLET BY MOUTH EVERY DAY Discharge Orders: Discharge Order (Routine); Ordered 09/01/24 Ordered By: Lamont Wiseman Other Ambulatory Orders: Physical Therapy Eval and Treat Outpatient (Order) Timeframe: 3 Days Facility: [facility] - Location: Physical Therapy [place] Ordered By: Lamont Wiseman Referrals: [facility] Outpatient Therapy [Outside] (We have notified Outpatient therapy of the need for a follow-up appointment to be scheduled. They should verify your insurance before starting. If you have not heard from them within the next 2 business days, please call them directly. ) Sal Wiseman PA [Physician Air Shovel Operator] - 09/15/24 11:00 am Discharge Diet: Regular Discharge Activity: Limit activity as instructed and Use walker/crutches as instructed Patient Instructions: Aspirin (By mouth), Methocarbamol (By mouth), Oxycodone, Rapid Release (By mouth), Ondansetron (By mouth), Acute Wound Care (DC), Total H ip Replacement (GEN), Joint Replacement Stoplight, Opioid Safety, Post Anesthesia Care Activity Restrictions/Additional Instructions: Orthopedic Discharge Instructions Dressing on Right hip---Helene Dressing--Keep dressing on and dry. After 3 days you can remove some of the dressing and shower. disconnect battery pack when showering. Helene dressing will stay on until follow up appt in 2 weeks. The battery pack for the dressing will at 5-7 days. Battery pack can be removed and discarded once batteries . Patient should keep dressings clean dry and intact Okay to shower over dressings if they do become wet these should be removed and new dressings applied Left hip dressing--Keep incisions clean dry and intact, leave Silverlon bandage dressings on in place for 7 days after that may rinse incisions with warm soapy water pat dry and redress with a dry dressing Weight-bear as tolerated to operative lower extremity Anterior hip precautions as instructed by physical therapy (no excessive external rotation past 90 degrees of the foot, as well as no crossing of the legs, avoid hip extension) Ice as needed for pain and swelling Take pain medication as prescribed Take antinausea medication as needed Take muscle relaxer as needed for muscle spasms Supplement with Citracal vitamin D for bone health and healing Pain medication can cause constipation. take [id number] stool softeners and or MiraLAX. Take blood thinner as prescribed aspirin 325 twice daily Follow-up in the orthopedic office in 2 weeks Contact the office for any questions or concerns Discharge Attestations Time Spent in Discharge Care*: greater than 30 min Quality Metrics Clinical Quality Measures [ No reported AMI, CVA or VTE this stay] Coding Level of Care Code Acute Code for Chg Fwd Diagnoses S/P total right hip arthroplasty Z96.641 Essential hypertension I10 Time Spent (min) 30
== END 2024-09-01 15:02 | disposition home health service (06) ==
LOC: MEDSURG 10:15
PROVIDERS: Physician Assistant; Admitting Provider Student in an Organized Health Care Education/Training Program; PCP Family Medicine; Visit Provider Student in an Organized Health Care Education/Training Program
PROC: 8E0Y0CZ Robotic Assisted Procedure of Lower Extremity, Open Approach (ICD-10-PCS; CPT 27130; principal; 2024-08-31 07:00)
DX: M16.11 Unilateral primary osteoarthritis, right hip (principal); I10 Essential (primary) hypertension; I95.81 Postprocedural hypotension; Z79.899 Other long term (current) drug therapy; Z87.891 Personal history of nicotine dependence; E78.5 Hyperlipidemia, unspecified
CPT/HCPCS: 20985; 27130; 36415; 51702; 73502; 76000; 80048; 85025; 86850; 86900; 97110; 97116; 97161; 97165; 97530; C1713; C1776; G0378; J0131; J0690; J1170; J1885; J2250; J2371; J2704; J3370; J7030; J7120

== ENCOUNTER 2024-09-03 15:04 | Outpatient (RCR) | payer OTHER, SELFPAY | END 2024-10-01 23:59 | disposition home or self-care (01) | LOC: SPT 15:04 | PROVIDERS: Visit Provider Student in an Organized Health Care Education/Training Program | DX: Z47.1 Aftercare following joint replacement surgery (principal); Z96.641 Presence of right artificial hip joint | CPT/HCPCS: 97110; 97161 ==

== ENCOUNTER → 2024-09-10 13:00 | Outpatient (BNVA) | payer OTHER, SELFPAY | PROVIDERS: PCP Family Medicine; Visit Provider Family Medicine | DX: I10 Essential (primary) hypertension (principal); E78.2 Mixed hyperlipidemia; D50.0 Iron deficiency anemia secondary to blood loss (chronic) | CPT/HCPCS: 80053; 80061; 85027 ==

== ENCOUNTER → 2024-09-15 10:57 | Outpatient (BNVA) | payer OTHER, SELFPAY | PROVIDERS: PCP Family Medicine; Visit Provider Physician Assistant | DX: Z96.641 Presence of right artificial hip joint (principal) | CPT/HCPCS: 73502 ==

== ENCOUNTER 2024-10-02 06:00 | Outpatient (RCR) | payer OTHER, SELFPAY | END 2024-10-31 23:59 | disposition home or self-care (01) | LOC: SPT 06:00 | PROVIDERS: PCP Family Medicine; Visit Provider Student in an Organized Health Care Education/Training Program | DX: Z47.1 Aftercare following joint replacement surgery (principal); Z96.641 Presence of right artificial hip joint | CPT/HCPCS: 97110 ==

== ENCOUNTER → 2024-10-27 11:01 | Outpatient (BNVA) | payer OTHER, SELFPAY | PROVIDERS: PCP Family Medicine; Visit Provider Physician Assistant | DX: Z96.641 Presence of right artificial hip joint (principal) | CPT/HCPCS: 73502 ==

== ENCOUNTER → 2025-01-26 15:04 | Outpatient (BNVA) | payer OTHER, SELFPAY | PROVIDERS: PCP Family Medicine; Visit Provider Physician Assistant | DX: Z96.641 Presence of right artificial hip joint (principal) | CPT/HCPCS: 73502 ==

== ENCOUNTER → 2025-08-31 14:04 | Outpatient (BNVA) | payer OTHER, SELFPAY | PROVIDERS: PCP Family Medicine; Visit Provider Student in an Organized Health Care Education/Training Program | DX: Z96.641 Presence of right artificial hip joint (principal); Z47.1 Aftercare following joint replacement surgery | CPT/HCPCS: 73502 ==

== ENCOUNTER → 2025-09-13 16:20 | Outpatient (BNVA) | payer OTHER, SELFPAY | PROVIDERS: PCP Family Medicine; Visit Provider Family Medicine | DX: E29.1 Testicular hypofunction (principal); I10 Essential (primary) hypertension; Z12.5 Encounter for screening for malignant neoplasm of prostate | CPT/HCPCS: 80053; 80061; 84403; 85025; G0103 ==